=== PATIENT | male | born 1985 | race Two or more races ===

== ENCOUNTER 2016-10-24 22:55 | Emergency (ER) | payer BC ==
[2016-10-24] MEDS ORDERED: MORPHINE SULFATE 10 MG/ML INJ IV ONE ×2 (23:45)
[2016-10-24] MEDS ORDERED: KETOROLAC TROMETHAMINE INJ/PF 30 MG/1 ML SDV IV ONE (23:45)
[2016-10-24] MEDS ORDERED: ONDANSETRON HCL INJ/PF 4 MG/2 ML SDV IV ONE (23:45)
[2016-10-24] MEDS ORDERED: NORMAL SALINE 1000 ML 1,000 ML IV ONE (23:45)
--- NOTE | 2016-10-24 23:47 | ER Document Report ---
ED GI/ - General Chief Complaint: Abdominal Pain Stated Complaint: ABDOMINAL PAIN Time Seen by Provider: 10/24/16 23:39 Notes: Patient is a 31-year-old male that comes emergency department for chief complaint of sudden sharp right lower quadrant pain that is severe, this began within the past couple of hours, he denies nausea or vomiting, he does report pain in his right flank. He denies any other symptoms including fever, chest pain, shortness of breath, passing out. He denies headache. He denies history of the same. He denies injury. Patient is [place]-speaking, has a history of untreated high blood pressure in the past, has no other medical history. TRAVEL OUTSIDE OF THE [place] IN LAST 30 DAYS: No - Related Data Allergies/Adverse Reactions: No Known Allergies Allergy (Verified 10/24/16 23:47) Past Medical History - General Information source: Patient, Friend - Patient requests that his friend interpret for him - Social History Smoking Status: Current Every Day Smoker Smoking Education Provided: Yes - <3 min Frequency of alcohol use: None Drug Abuse: None Lives with: Family Family History: Reviewed & Not Pertinent Patient has suicidal ideation: No Patient has homicidal ideation: No - Past Medical History Cardiac Medical History: Reports: Hx Hypertension - never treated Renal/ Medical History: Denies: Hx Peritoneal Dialysis Surgical Hx: Negative - Immunizations Hx Diphtheria, Pertussis, Tetanus Vaccination: Yes Review of Systems - Review of Systems Constitutional: No symptoms reported EENT: No symptoms reported Cardiovascular: No symptoms reported Respiratory: No symptoms reported Gastrointestinal: See HPI Genitourinary: See HPI Male Genitourinary: No symptoms reported Musculoskeletal: No symptoms reported Skin: No symptoms reported Hematologic/Lymphatic: No symptoms reported Neurological/Psychological: No symptoms reported Physical Exam - Vital signs Vitals: Temp Pulse Resp BP Pulse Ox 97.7 F 77 20 199/126 H 96 10/24/16 23:02 10/24/16 23:02 10/24/16 23:02 10/24/16 23:02 10/24/16 23:02 Interpretation: Normal - General General appearance: Appears well, Alert - HEENT Head: Normocephalic, Atraumatic Eyes: Normal Pupils: PERRL - Respiratory Respiratory status: No respiratory distress Chest status: Nontender Breath sounds: Normal Chest palpation: Normal - Cardiovascular Rhythm: Regular Heart sounds: Normal auscultation Murmur: No - Abdominal Inspection: Normal Distension: No distension Bowel sounds: Normal Tenderness: Tender - Some generalized tenderness in the mid to lower right abdomen, no guarding, no specific McBurney's point tenderness Organomegaly: No organomegaly - Back Back: Tender - There is right-sided CVA tenderness, remaining back exam is unremarkable - Extremities General upper extremity: Normal inspection, Nontender, Normal color, Normal ROM , Normal temperature General lower extremity: Normal inspection, Nontender, Normal color, Normal ROM , Normal temperature, Normal weight bearing. No: Manolo's sign - Neurological Neuro grossly intact: Yes Cognition: Normal Orientation: AAOx4 Nirali Coma Scale Eye Opening: Spontaneous Nirali Coma Scale Verbal: Oriented Tennyson Coma Scale Motor: Obeys Commands Nirali Coma Scale Total: 15 Speech: Normal Motor strength normal: LUE, RUE, LLE, RLE Sensory: Normal - Psychological Associated symptoms: Normal affect, Normal mood - Skin Skin Temperature: Warm Skin Moisture: Dry Skin Color: Normal Course - Re-evaluation Re-evalutation: Initially very uncomfortable in appearance, he has some right-sided CVA tenderness and mild right-sided abdominal tenderness with no guarding. Presentation is consistent with a kidney stone. CT unremarkable, chemistry showing elevated creatinine, however patient is telling me that his blood pressure is always very elevated, I suspect this is from chronically elevated blood pressures. EKG evidence of LVH. No heart murmur on exam. This is unremarkable. I discussed with patient and friend who is interpreting on patient's request, I do not recommend a CAT scan, exam is consistent with a kidney stone passage, patient asymptomatic after medications. CAT scan was canceled, unfortunately the dental service technician did not realize this and proceeded to perform the scan anyway. I apologized to patient in discussed the results of the CAT scan which showed likely recently passed stone, nephrolithiasis, and questionable nodules in the lungs. Given a copy of the scan, advised to have close follow-up of this, also referred to urology, providing with blood pressure medication, patient states that he will start the medication and go see a doctor in close follow-up for additional management of his blood pressure. Discussed smoking cessation, especially with questionable CT findings , patient states he will. Discussed return precautions in detail, patient states understanding and agreement. - Vital Signs Vital signs: Temp Pulse Resp BP Pulse Ox 98.3 F 77 22 H 206/130 H 98 10/25/16 03:47 10/24/16 23:02 10/24/16 23:44 10/25/16 03:37 10/25/16 03:37 - Laboratory Result Diagrams: 10/25/16 00:00 10/25/16 01:15 Laboratory results interpreted by me: 10/25/16 10/25/16 10/25/16 00:00 00:50 01:15 RDW 14.5 H Seg Neutrophils % 80.2 H Lymphocytes % 12.5 L BUN 30 H Creatinine 1.32 H Glucose 122 H Urine Protein 30 H Urine Glucose (UA) 150 H Urine Blood SMALL H Discharge - Discharge Clinical Impression: Right flank pain, Right sided abdominal pain Condition: Stable Disposition: HOME, SELF-CARE Additional Instructions: Your symptoms, workup, and examination are consistent with passing a kidney stone. Take the medication as prescribed, also take a blood pressure medication as prescribed, follow-up with primary care for additional management of this. You can use the urine strainer to see when you pass the stone. See Urology referral below for follow-up in regards to the stone. Return to emergency department for any concerning worsening symptoms including fever, uncontrolled vomiting, severe pain, or any other concerning symptoms. [facility] Urologist in [place], [place] Address: [address] [place], [place] [id number] Formerly [facility] Medical clinic in [place], [place] Address: [facility] [place] [id number] Prescriptions: Morphine Sulfate [Morphine Ir 15 Mg Tablet] 15 mg PO Q4HP PRN #20 tablet PRN Reason: Lisinopril/Hydrochlorothiazide [Lisinopril-Hctz 20-25 mg Tab] 1 each PO DAILY # 60 tablet Forms: Elevated Blood Pressure, Smoking Cessation Education
[2016-10-25 00:20] LABS: ABSOLUTE LYMPHOCYTES (AUTO) 1.2 10^3/uL (0.5-4.7); ABSOLUTE MONOCYTES (AUTO) 0.6 10^3/uL (0.1-1.4); ABSOLUTE NEUT (AUTO) 7.4 10^3/uL (1.7-8.2); BASOPHILS % (AUTO) 0.3 % (0-2); EOSINOPHILS % (AUTO) 0.3 % (0-6); HEMOGLOBIN 15.3 g/dL (13.5-17.0); HGB HCT DIFFERENCE -0.1; LYMPHOCYTES % (AUTO) 12.5 % (13-45); MEAN CORPUSCULAR HGB CONC 33.2 g/dL (32.0-36.0); MEAN CORPUSCULAR VOLUME 88 fl (80-97); MONOCYTES % (AUTO) 6.7 % (3-13); RED BLOOD COUNT 5.25 10^6/uL (4.35-5.55); RED CELL DISTRIBUTION WIDTH 14.5 % (11.5-14.0); SEGMENTED NEUTROPHILS % (AUTO) 80.2 % (42-78); WHITE BLOOD COUNT 9.3 10^3/uL (4.0-10.5)
[2016-10-25 01:18] LABS: APPEARANCE,URINE CLEAR; BILIRUBIN,URINE NEGATIVE (NEGATIVE); GLUCOSE, URINE 150 mg/dL (NEGATIVE); KETONES,URINE NEGATIVE (NEGATIVE); LEUKOCYTE ESTERASE,URINE NEGATIVE (NEGATIVE); NITRITE,URINE NEGATIVE (NEGATIVE); PROTEIN,URINE 30 mg/dL (NEGATIVE); URINE SPECIFIC GRAVITY 1.011; UROBILINOGEN,URINE NEGATIVE mg/dL (<2.0)
[2016-10-25 01:49] LABS: ALANINE AMINOTRANSFERASE 38 U/L (21-72); ALKALINE PHOSPHATASE 78 U/L (38-126); ANION GAP 10 (5-19); ASPARTATE AMINO TRANSFERASE 26 U/L (17-59); BILIRUBIN,DIRECT 0.3 mg/dL (0.0-0.4); BILIRUBIN,TOTAL 0.3 mg/dL (0.2-1.3); BLOOD UREA NITROGEN 30 mg/dL (7-20); CARBON DIOXIDE 26 mmol/L (22-30); CHLORIDE 107 mmol/L (98-107); CREATININE RESULT 1.32 mg/dL (0.52-1.25); GLUCOSE 122 mg/dL (75-110); POTASSIUM 4.6 mmol/L (3.6-5.0); SODIUM 143.3 mmol/L (137-145); TOTAL PROTEIN 6.4 g/dL (6.3-8.2)
[2016-10-25] MEDS ORDERED: HYDROCODONE/ACETAMINOPHEN 5-325 MG 6 TAB/DSPK PO PRN (02:13)
--- NOTE | 2016-10-25 02:49 | RADIOLOGY REPORT (SQ) ---
EXAM DESCRIPTION: CT LTD RENAL STONE PROTOCOL ON COMPLETED DATE/TIME: 10/25/2016 2:29 am REASON FOR STUDY: right flank pain COMPARISON: None. TECHNIQUE: CT scan of the abdomen and pelvis performed without intravenous or oral contrast. Images reviewed with lung, soft tissue, and bone windows. Reconstructed coronal and sagittal MPR images revi ewed. All images stored on PACS. All CT scanners at this facility use dose modulation, iterative reconstruction, and/or weight based d osing when appropriate to reduce radiation dose to as low as reasonably achievable (ALARA). [facility]: Dose Right [facility]: CareDose [facility]: Dose Right [facility]: Teradose 4D [facility]: [employer] RADIATION DOSE: mGy. LIMITATIONS: None. FINDINGS: LOWER CHEST: Mild bibasilar atelectasis. 6 mm pleural-based nodule in the left lower lobe (image 17/48). There is an 8 mm nodule in the left lower lobe (image 20/48). NON-CONTRASTED LIVER, SPLEEN, ADRENALS: Evaluation limited by lack of IV contrast. No identified sign ificant masses. PANCREAS: No peripancreatic inflammatory changes. GALLBLADDER: Present. RIGHT KIDNEY AND URETER: Assessment for masses limited by lack of IV contrast. There is perinephric and periureteric stranding. There is mild hydronephrosis. Nonobstructing renal calculi in measurin g up to 5 mm. No ureteral calculus is identified. LEFT KIDNEY AND URETER: Assessment for masses limited by lack of IV contrast. Nonobstructing renal calculus measuring 8 mm (434 Hounsfield units). No hydronephrosis or hydroureter. AORTA AND RETROPERITONEUM: No abdominal aneurysm. No retroperitoneal masses or adenopathy. BOWEL AND PERITONEAL CAVITY: No dilated bowel loops masses or inflammatory changes. No free fluid. APPENDIX: Normal. PELVIS, BLADDER, AND ABDOMINAL WALL:The urinary bladder is distended. No pelvic mass. No free fluid . Small fat containing umbilical hernia. Small fat containing left inguinal hernia. BONES: Degenerative disc disease with vacuum disc phenomenon at L4-L5 and L5-S1. IMPRESSION: Right-sided perinephric and perienteric stranding and mild right hydronephrosis with no ureteral calculus identified, findings may be secondary to a recently passed calculus versus acute in fection/inflammation such as pyelonephritis. Please correlate with laboratory values/urinalysis. Bilateral nephrolithiasis. Pulmonary nodules in the left lower lobe measuring up to [address] thorax in 3 months recomm ended to re-evaluate. TECHNICAL DOCUMENTATION: JOB ID: [id number] [place]- Quality ID # [id number]: Final reports with documentation of one or more dose reduction techniques (e.g., Au tomated exposure control, adjustment of the mA and/or kV according to patient size, use of iterative reconstruction technique) 2010 [employer]- All Rights Reserved
[2016-10-25 03:47] VITALS: BP 206/130
== END 2016-10-25 03:48 | disposition home or self-care (01) ==
LOC: ER 22:55
DX: R10.31 Right lower quadrant pain (principal); I10 Essential (primary) hypertension; F17.210 Nicotine dependence, cigarettes, uncomplicated
CPT/HCPCS: 99284; 96374; 96375; 36415; 85025; 80053; 81001; 76380; J1885; J2270; J2405; J7030

== ENCOUNTER 2017-12-16 01:27 | Emergency (ER) | payer BC ==
[2017-12-16 01:38] VITALS: BP 188/118
[2017-12-16 02:00] LABS: APPEARANCE,URINE SLIGHTLY-CLOUDY; BILIRUBIN,URINE NEGATIVE (NEGATIVE); CALCIUM OXALATE CRYSTALS,URINE RARE /HPF; COLOR,URINE YELLOW; GLUCOSE, URINE >=500 mg/dL (NEGATIVE); KETONES,URINE NEGATIVE (NEGATIVE); LEUKOCYTE ESTERASE,URINE NEGATIVE (NEGATIVE); NITRITE,URINE NEGATIVE (NEGATIVE); PROTEIN,URINE 100 mg/dL (NEGATIVE); URINE SPECIFIC GRAVITY 1.026
[2017-12-16] MEDS ORDERED: ONDANSETRON HCL INJ/PF 4 MG/2 ML SDV IV ONE (03:03)
[2017-12-16] MEDS ORDERED: MORPHINE SULFATE 10 MG/ML INJ IV ONE (03:03)
[2017-12-16] MEDS ORDERED: NORMAL SALINE 1000 ML 1,000 ML IV ONE (03:03)
[2017-12-16] MEDS ORDERED: DIPHENHYDRAMINE HCL 50 MG/ML VIAL IV ONE (03:03)
--- NOTE | 2017-12-16 03:05 | ER Document Report ---
ED GI/ - General Chief Complaint: Flank Pain Stated Complaint: FLANK PAIN Time Seen by Provider: 12/16/17 02:57 Notes: Patient is a 32-year-old male that comes to the emergency department for chief complaint of right flank pain and right lower abdominal pain, symptoms started suddenly, he reports pain is severe. He states he has passed kidney stones in the past, states this feels similar. No vomiting, fever, or other symptoms reported. He denies any surgeries, he does take hypertension medication, he denies any other medical history. TRAVEL OUTSIDE OF THE [place] IN LAST 30 DAYS: No - Related Data Allergies/Adverse Reactions: No Known Allergies Allergy (Verified 10/24/16 23:47) Past Medical History - General Information source: Patient - Social History Smoking Status: Never Smoker Frequency of alcohol use: None Drug Abuse: None Lives with: Family Family History: Reviewed & Not Pertinent - Past Medical History Cardiac Medical History: Reports: Hx Hypertension - never treated Renal/ Medical History: Denies: Hx Peritoneal Dialysis Surgical Hx: Negative - Immunizations Hx Diphtheria, Pertussis, Tetanus Vaccination: Yes Review of Systems - Review of Systems Constitutional: No symptoms reported EENT: No symptoms reported Cardiovascular: No symptoms reported Respiratory: No symptoms reported Gastrointestinal: See HPI Genitourinary: See HPI Male Genitourinary: No symptoms reported Musculoskeletal: No symptoms reported Skin: No symptoms reported Hematologic/Lymphatic: No symptoms reported Neurological/Psychological: No symptoms reported Physical Exam - Vital signs Vitals: Temp Pulse Resp BP Pulse Ox 97.4 F 74 20 188/118 H 97 12/16/17 01:36 12/16/17 01:36 12/16/17 01:36 12/16/17 01:36 12/16/17 01:36 - Notes Notes: GENERAL: Patient slightly agitated, appears to be in pain. HEAD: Normocephalic, atraumatic. EYES: Pupils equal, round, and reactive to light. Extraocular movements intact. ENT: Oral mucosa moist, tongue midline. NECK: Full range of motion. Supple. Trachea midline. LUNGS: Clear to auscultation bilaterally, no wheezes, rales, or rhonchi. No respiratory distress. HEART: Regular rate and rhythm. No murmur ABDOMEN: There is some generalized right abdominal tenderness, nonspecific, no specific guarding. EXTREMITIES: Moves all 4 extremities spontaneously. No edema, normal radial and dorsalis pedis pulses bilaterally. No cyanosis. BACK: no cervical, thoracic, lumbar midline tenderness. Right CVA tenderness. Left unremarkable. NEUROLOGICAL: Alert and oriented x3. Normal speech. [cranial nerves II through XII grossly intact]. PSYCH: Normal affect, normal mood. SKIN: Warm, dry, normal turgor. No rashes or lesions noted. Course - Re-evaluation Re-evalutation: Patient was evaluated by me 1 year ago and had a CAT scan that was consistent with a recently passed stone. He presents today with symptoms very similar, he does have right-sided CVA tenderness which is mild, generalized right lower abdominal tenderness, chemistry does not show any elevation of creatinine or concerning acute abnormality, urinalysis shows hematuria without nitrites, bacteria, etc. esterase. There are a few white blood cells, culture was sent. Clinical picture is consistent with ureterolithiasis. Vital signs unremarkable , no fever. On reevaluation patient asymptomatic. No imaging has been performed yet, however discussed with patient, because of lack of infection and history of the same along with specific clinical presentation and resolution of patient's symptoms imaging will be deferred at this time. I discussed with patient in detail with urology follow-up, medications at home, and strict return precautions. Patient states understanding and agreement with plan. - Vital Signs Vital signs: Temp Pulse Resp BP Pulse Ox 98 F 78 14 188/118 H 98 12/16/17 05:03 12/16/17 05:03 12/16/17 05:03 12/16/17 01:36 12/16/17 05:03 - Laboratory Result Diagrams: 12/16/17 03:35 Laboratory results interpreted by me: 12/16/17 12/16/17 01:40 03:35 Potassium 3.4 L Chloride 108 H BUN 32 H Urine Protein 100 H Urine Glucose (UA) >=500 H Urine Blood LARGE H Urine Urobilinogen 2.0 H Discharge - Discharge Clinical Impression: Flank pain Abdominal pain Qualifiers: Abdominal location: lower abdomen, unspecified Qualified Code(s): R10.30 - Lower abdominal pain, unspecified Hematuria Qualifiers: Hematuria type: unspecified type Qualified Code(s): R31.9 - Hematuria, unspecified Condition: Stable Disposition: HOME, SELF-CARE Additional Instructions: Creemos que est pasando un clculo renal. Velma el medicamento para el dolor y las nuseas si es necesario, puede prakash ibuprofeno con esto para ayudar, beber jessie agua. Rose un seguimiento con la oficina del mdico de urologa (jessica a continuacin), regrese si empeora (si tiene fiebre, vmitos o aumento del [facility] [address] [place], [place] [id number] Prescriptions: Morphine Sulfate [Morphine Ir 15 Mg Tablet] 15 mg PO Q4HP PRN #12 tablet PRN Reason: Promethazine HCl [Phenergan 25 mg Tablet] 25 mg PO Q6H PRN #20 tablet PRN Reason:
[2017-12-16 03:55] LABS: ANION GAP 10 (5-19); BLOOD UREA NITROGEN 32 mg/dL (7-20); CALCIUM 9.2 mg/dL (8.4-10.2); CARBON DIOXIDE 25 mmol/L (22-30); CHLORIDE 108 mmol/L (98-107); GLUCOSE 106 mg/dL (75-110); POTASSIUM 3.4 mmol/L (3.6-5.0); SODIUM 143.1 mmol/L (137-145)
[2017-12-16] MEDS ORDERED: HYDROCODONE/ACETAMINOPHEN 5-325 MG (6 TAB/ER DISP) PO PRN (04:25)
[2017-12-16] MEDS ORDERED: ONDANSETRON ODT 4 MG TAB (6 TAB/ER DISP) PO PRN (04:25)
== END 2017-12-16 05:07 | disposition home or self-care (01) ==
LOC: ER 01:27
DX: R10.31 Right lower quadrant pain (principal); R31.9 Hematuria, unspecified; I10 Essential (primary) hypertension
CPT/HCPCS: 99284; 96361; 96374; 96375; 36415; 87086; 80048; 81001; J1200; J2270; J2405; J7030